=== PATIENT | female | born 1980 | race African-American/Black ===

== ENCOUNTER 2017-01-11 15:00 | Emergency (ER) | payer OTHER ==
[~2017-01-11] VITALS: Ht 149.9 cm; Wt 65.0 kg
[2017-01-11 15:07] VITALS: TEMP 37.1; Ht 149.9 cm; Wt 65.0 kg
--- NOTE | 2017-01-11 16:21 | EMERGENCY ROOM VISIT NOTE ---
History Report prepared by Edilia: Steven Owens Under the Supervision of: Braden DiaO. First contact with patient: 16:01 Chief Complaint: ABDOMINAL PAIN Stated Complaint: ABD. PAIN, FEVER, RIVERA Nursing Triage Summary: Patient presents with c/o fever since Saturday01/06/17 and states she began having sharp mid to lower abdominal pain today Was evaluated at [facility] and referred to ED Nausea yesterday, denies urinary symptoms, vomiting, or diarrhea History of Present Illness The patient is a 36 year old female who presents to the Emergency Room with complaints of intermittent sharp abdominal pain that occurred around 0900 this morning. She states that the pain then went away, and an hour later it came back again while doing chores in her house, and the pain has not returned since then. She additionally states that she has been having a fever for the past five days. She denies any runny nose, diarrhea, sore throat, back pain, urinary symptoms, abdominal distension, and vaginal discharge. She states that her daughter was recently sick with a sore throat. The patient states that she is on Depo-Provera for two years now and has gained 18 pounds, and she has not missed any doses. She states that when she was with her third child she had an ovarian cyst, but there was nothing done about it. She states that she was seen at [facility] earlier and had labs performed, and they told her to come in for evaluation for possible diverticulitis and a CT scan due to left lower quadrant abdominal tenderness. She had a CMP and CBC with Diff which were normal. Source of History: patient Onset: 0900 Position: abdomen Quality: sharp Timing: intermittent Associated Symptoms: + fevers, No sorethroat, No back pain, No diarrhea, No urinary symptoms Review of Systems See HPI for pertinent positives & negatives. A total of 10 systems reviewed and were otherwise negative. Past Medical & Surgical Surgical Problems: (1) H/O: Social History Smoking Status: Never Smoker Marital Status: Housing Status: lives with family Occupation Status: student Current/Historical Medications Scheduled Calcium Carbonate (Calcium 600), 1 TAB PO DAILY Cholecalciferol (Vitamin D3), 1 CAP PO DAILY Allergies Coded Allergies: No Known Allergies (Unverified , 01/11/17) Physical Exam Vital Signs Date Time Temp Pulse Resp B/P (MAP) Pulse Ox O2 Delivery O2 Flow Rate FiO2 01/11/17 17:50 78 20 126/80 99 01/11/17 17:00 79 18 126/81 100 Room Air 01/11/17 15:07 37.1 83 16 136/80 99 Room Air Physical Exam GENERAL: alert, well appearing, well nourished, no distress, non-toxic EYE EXAM: normal conjunctiva, PERRL and EOM's grossly intact OROPHARYNX: no exudate, no erythema, lips, buccal mucosa, and tongue normal and mucous membranes are moist NECK: supple, no nuchal rigidity, no adenopathy, non-tender LUNGS: Clear to auscultation. Normal chest wall mechanics HEART: no murmurs, S1 normal and S2 normal ABDOMEN: abdomen soft, non-tender, normo-active bowel sounds, no masses, no rebound or guarding. BACK: Back is symmetrical on inspection and there is no deformity, no midline tenderness, no CVA tenderness. SKIN: no rashes and no bruising UPPER EXTREMITIES: upper extremities are grossly normal. LOWER EXTREMITIES: No pitting edema. NEURO EXAM: Normal sensorium, cranial nerves II-XII grossly intact, normal speech, no gross weakness of arms, no gross weakness of legs. Gross sensation intact. Medical Decision & Procedures ER Provider Diagnostic Interpretation: Radiology results have been interpreted by the radiologist and reviewed by me. ABD/PELVIS NO IV OR ORAL CONT CLINICAL HISTORY: 36 years-old Female presenting with intermittent central abd pain. TECHNIQUE: Multidetector CT of the abdomen and pelvis was performed without the use of intravenous contrast. IV contrast: None. A dose lowering technique was used consistent with the principles of ALARA (as low as reasonably achievable). COMPARISON: None. CT DOSE (mGy.cm): The estimated cumulative dose is 250.76 mGy.cm. FINDINGS: Manager Property topogram: Unremarkable. Lung bases: Lung bases clear. Normal heart size. No pericardial or pleural effusion. Liver: Normal morphology. Normal density. Biliary: No gross biliary ductal dilatation allowing for noncontrast technique. Normal gallbladder. Pancreas: Normal noncontrast appearance. Spleen: Normal noncontrast appearance. Adrenal glands: Normal noncontrast appearance. Kidneys and ureters: Normal noncontrast appearance. No hydronephrosis. Bladder: Incompletely evaluated secondary to underdistention. Pelvic organs: Normal noncontrast appearance. Bowel: Normal appendix. No bowel obstruction. Peritoneal cavity: Trace free fluid in the pelvis. Vasculature: Normal noncontrast appearance. Lymph nodes: No gross lymphadenopathy allowing for noncontrast technique. Abdominal wall: Diastasis of the rectus abdominis. Musculoskeletal: Normal. IMPRESSION: 1. Normal noncontrast examination of the abdomen and pelvis. Electronically signed by: Ja Weathers M.D. 01/11/2017 5:04 PM Dictated Date/Time: 01/11/2017 5:00 PM Laboratory Results Test 01/11/17 10:25 Urine Color YELLOW Urine Appearance CLEAR (CLEAR) Urine pH 6.0 (4.5-7.5) Urine Specific [place] 1.022 (1.000-1.030) Urine Protein NEG (NEG) Urine Glucose (UA) NEG (NEG) Urine Ketones 2+ (NEG) Urine Occult Blood TRACE (NEG) Urine Nitrite NEG (NEG) Urine Bilirubin NEG (NEG) Urine Urobilinogen NEG (NEG) Urine Leukocyte Esterase NEG (NEG) Urine WBC (Auto) 0 /hpf (0-5) Urine RBC (Auto) 0-4 /hpf (0-4) Urine Hyaline Casts (Auto) 0 /lpf (0-5) Urine Epithelial Cells (Auto) >30 /lpf (0-5) Urine Bacteria (Auto) NEG (NEG) Urine Test NEG (NEG) Laboratory results per my review. ED Course 1606: The patient was evaluated in room C5. A complete history and physical exam was performed. 1730: Upon reevaluation, the patient is feeling better and has no recurrent episodes of pain. I discussed the findings and the treatment plan with the patient. She verbalizes agreement and understanding. She was discharged home. Medical Decision Differential diagnosis: Etiologies such as appendicitis, diverticulitis, PUD, biliary pathology, UTI, pancreatitis, obstruction, mesenteric ischemia, aortic pathology, infections, inflammatory bowel disease, renal colic, as well as others were entertained. No pain on exam here and two intermittent episodes earlier today. Labs performed by [facility] reassuring. Had pelvic exam there also. Doubt plastic tool maker pathology. CT here reassuring, UA negative. Discussed with pt possible manifestation of viral illness given recent sick contact. Discussed sx to watch/return for, she verbalized understanding and was agreeable with plan. Medication Reconcilliation Current Medication List: was personally reviewed by me Blood Pressure Screening Patient's blood pressure: Normal blood pressure Impression Primary Impression: Abdominal pain Scribe Attestation The scribe's documentation has been prepared under my direction and personally reviewed by me in its entirety. I confirm that the note above accurately reflects all work, treatment, procedures, and medical decision making performed by me. Departure Information Dispostion Home / Self-Care Referrals Magdalena Nunez (PCP) Forms Call Back Authorization, HOME CARE DOCUMENTATION FORM, IMPORTANT VISIT INFORMATION Patient Instructions [facility] Additional Instructions Please continue to monitor your symptoms for any changes. You may eat and drink normally, please stay well hydrated. If you have any recurrent or worsening pain, develop fevers/chills, nausea/vomiting, notice a change in your urine or stools, develop abnormal discharge/bleeding, or you have any other new or concerning symptoms, please return to the emergency room. Problem Qualifiers Primary Impression: Abdominal pain Abdominal location: unspecified location Qualified Codes: R10.9 - Unspecified abdominal pain
--- NOTE | 2017-01-11 17:06 | DIAGNOSTIC IMAGING REPORT ---
ABD/PELVIS NO IV OR ORAL CONT CLINICAL HISTORY: 36 years-old Female presenting with intermittent central abd pain. TECHNIQUE: Multidetector CT of the abdomen and pelvis was performed without the use of intravenous contrast. IV contrast: None. A dose lowering technique was used consistent with the principles of ALARA (as low as reasonably achievable). COMPARISON: None. CT DOSE (mGy.cm): The estimated cumulative dose is 250.76 mGy.cm. FINDINGS: Mixing Operator topogram: Unremarkable. Lung bases: Lung bases clear. Normal heart size. No pericardial or pleural effusion. Liver: Normal morphology. Normal density. Biliary: No gross biliary ductal dilatation allowing for noncontrast technique. Normal gallbladder. Pancreas: Normal noncontrast appearance. Spleen: Normal noncontrast appearance. Adrenal glands: Normal noncontrast appearance. Kidneys and ureters: Normal noncontrast appearance. No hydronephrosis. Bladder: Incompletely evaluated secondary to underdistention. Pelvic organs: Normal noncontrast appearance. Bowel: Normal appendix. No bowel obstruction. Peritoneal cavity: Trace free fluid in the pelvis. Vasculature: Normal noncontrast appearance. Lymph nodes: No gross lymphadenopathy allowing for noncontrast technique. Abdominal wall: Diastasis of the rectus abdominis. Musculoskeletal: Normal. IMPRESSION: 1. Normal noncontrast examination of the abdomen and pelvis. Electronically signed by: Ja Weathers M.D. 01/11/2017 5:04 PM Dictated Date/Time: 01/11/2017 5:00 PM
[2017-01-11 17:08] LABS: PREG INTERNAL NEGATIVE QC NEG CLEAR BACKGROUND; PREG INTERNAL POSITIVE QC POS CONTROL LINE; URINE APPEARANCE CLEAR (CLEAR); URINE BILIRUBIN NEG (NEG); URINE COLOR YELLOW; URINE EPITHELIAL CELL AUTO >30 /lpf (0-5); URINE NITRITE NEG (NEG); URINE SPECIFIC GRAVITY 1.022 (1.000-1.030); UROBILINOGEN NEG (NEG); ZZUR CULT IF INDIC CLEAN CATCH NO
[2017-01-11 17:17] LABS: MANUAL MICROSCOPIC REQUIRED? NO; REVIEW REQ? NO
[2017-01-11] MEDS ORDERED: CHOL2000 PO (17:17)
[2017-01-11] MEDS ORDERED: CALC600T PO (17:17)
[2017-01-11 17:50] VITALS: BP 126/80; PULSE 78; O2SAT 99
== END 2017-01-11 17:52 | disposition home or self-care (01) ==
LOC: C.EDB 15:04 → C.EDC 17:52
DX: R10.9 Unspecified abdominal pain (principal); Z98.891 History of uterine scar from previous surgery